=== PATIENT | female | born 1985 | race Caucasian/White ===

== ENCOUNTER 2016-10-20 14:47 | Emergency (ER) | payer OTHER ==
[~2016-10-20] VITALS: Ht 162.6 cm; Wt 61.4 kg
[~2016-10-20 14:47] MED LIST: PREN1TAB47 PO
[2016-10-20 15:05] VITALS: BP 113/70; PULSE 89; RESP 15; O2SAT 100
== END 2016-10-20 17:06 | disposition left against medical advice (07) ==
LOC: SED 14:47
DX: R10.9 Unspecified abdominal pain (principal); Z53.21 Procedure and treatment not carried out due to patient leaving prior to being seen by health care provider